=== PATIENT | female | born 1990 | race Hispanic/Latino ===

== ENCOUNTER 2016-09-05 10:18 | Emergency (ER) | payer SELFPAY ==
[2016-09-05 10:19] VITALS: BMI 20.9
--- NOTE | 2016-09-05 10:40 | ED PDOC ---
Arrival/HPI - General Time Seen by Provider: 09/05/16 10:28 Historian: Patient - History of Present Illness Narrative History of Present Illness (Text): 09/05/16 10:31 25 y/o female, pmh including tubal ovarian mass, penicillin allergy, LMP , c/o feeling nauseous and vomiting x 3 days. Pt. stated that her period has been late this week, no urinary symptoms, no flank pain, no fever or chills, no night sweat, no palpitation, no dizziness, no other medical or psychological complaints. Past Medical History - Provider Review Nursing Documentation Reviewed: Yes - Past Medical History Past Medical History: No Previous - Psychiatric Hx Substance Use: No - Past Surgical History Past Surgical History: No Previous - Surgical History Hx Section: Yes Other/Comment: 2 ABORTIONS - Anesthesia Hx Anesthesia: Yes Hx Anesthesia Reactions: No - Suicidal Assessment Feels Threatened In Home Enviroment: No Family/Social History - Physician Review Nursing Documentation Reviewed: Yes Family/Social History: Unknown Family HX Smoking Status: Heavy Smoker > 10 Cigarettes Daily Hx Alcohol Use: Yes Hx Substance Use: No Substance used: marijuana, cocaine Hx Substance Use Treatment: Yes (2 years ago for marijuana) Allergies/Home Meds Allergies/Adverse Reactions: Allergies Penicillins Allergy (Verified 09/05/16 10:45) RASH Review of Systems - Physician Review All systems were reviewed & negative as marked: Yes - Review of Systems Constitutional: absent: Weight Change, Fevers Eyes: absent: Vision Changes, Photophobia ENT: absent: Hearing Changes Respiratory: absent: Cough, Sputum Cardiovascular: absent: Chest Pain Gastrointestinal: Nausea, Vomiting. absent: Abdominal Pain, Constipation, Diarrhea Genitourinary Female: absent: Dysuria, Frequency, Hematuria, Urine Output Changes, Vaginal Bleeding, Vaginal Discharge Musculoskeletal: absent: Arthralgias, Back Pain, Neck Pain, Joint Swelling, Myalgias Skin: absent: Rash, Pruritis, Skin Lesions, Laceration, Abscess, Ulcer Neurological: absent: Headache, Dizziness Endocrine: absent: Diaphoresis Physical Exam Vital Signs Reviewed: Yes Vital Signs Temp Pulse Resp BP Pulse Ox 09/05/16 13:16 98.1 F 97 H 18 116/56 L 100 09/05/16 12:17 91 H 20 118/58 L 100 09/05/16 11:36 87 18 111/68 100 09/05/16 10:49 98.0 F 76 18 135/75 100 09/05/16 10:36 98.0 F 104 H 20 135/75 100 Temperature: Afebrile Blood Pressure: Normal Pulse: Regular Respiratory Rate: Normal Appearance: Positive for: Well-Appearing, Non-Toxic, Comfortable Pain Distress: None Mental Status: Positive for: Alert and Oriented X 3 - Systems Exam Head: Present: Atraumatic, Normocephalic Pupils: Present: PERRL Extroacular Muscles: Present: EOMI Conjunctiva: Present: Normal Ears: Present: Normal, NORMAL TM, Normal Canal. No: Erythema Mouth: Present: Moist Mucous Membranes Pharnyx: Present: Normal. No: ERYTHEMA, EXUDATE, Uvular Deviation, Soft Palate/ Uvular Edema Nose (External): Present: Atraumatic. No: Abrasion, Contusion, Laceration Nose (Internal): Present: Normal Inspection, No Active Bleeding. No: Rhinorrhea , Septal Hematoma, Epistaxis Neck: Present: Normal Range of Motion, Trachea Midline. No: Lymphadenopathy Respiratory/Chest: Present: Clear to Auscultation, Good Air Exchange. No: Respiratory Distress, Accessory Muscle Use Cardiovascular: Present: Regular Rate and Rhythm, Normal S1, S2. No: Murmurs Abdomen: Present: Normal Bowel Sounds. No: Tenderness, Distention, Peritoneal Signs, Rebound, Guarding Back: Present: Normal Inspection Upper Extremity: Present: Normal Inspection. No: Cyanosis, Edema Lower Extremity: Present: Normal Inspection. No: Edema Neurological: Present: GCS=15, Speech Normal, Motor Func Grossly Intact, Gait Normal, Memory Normal Skin: Present: Warm, Dry, Normal Color. No: Rashes Lymphatic: No: Cervical Adenopathy Psychiatric: Present: Alert, Oriented x 3, Normal Insight, Normal Concentration Medical Decision Making ED Course and Treatment: 09/05/16 10:43 -labs/ua -IVF -observe and reassess 09/05/16 12:59 -Labs are non-significant except mildly low potassium which I advised her eat more potassium rich food such as banana. -UA show no UTI -Influenza negative -Pt. has no vaginal bleeding or pelvic cramps, no ob or medical assistant ob gyn complaints. -elevated beta hcg 181,111 which is approx. 7-12 weeks . -Discharge home with jeyson, education on stay hydrated, saltine cracker, eat banana at home, follow up with your own pmd and obgyn within 2 days, return to the ER for any new or worsening signs or symptoms. - Lab Interpretations Lab Results: 09/05/16 10:45 09/05/16 10:45 Lab Results 09/05/16 10:45: WBC 8.8, RBC 4.29, Hgb 13.5, Hct 38.2, MCV 89.0, MCH 31.5, MCHC 35.3, RDW 13.0, Plt Count 248, MPV 9.9, Gran % 64.0, Lymph % (Auto) 26.4, Canyon % (Auto) 8.5 H, Eos % (Auto) 0.8 L, Baso % (Auto) 0.3, Gran # 5.62, Lymph # 2.3 , Canyon # 0.8 H, Eos # 0.1, Baso # 0.03, Sodium 138, Potassium 3.4 L, Chloride 102, Carbon Dioxide 21, Anion Gap 18, BUN 8, Creatinine 0.6, Est GFR ( Amer) > 60, Est GFR (Non-Af Amer) > 60, Random Glucose 88, Calcium 9.6, Total Bilirubin 1.3, AST 23, ALT 31, Alkaline Phosphatase 57, Total Protein 8.6 H, Albumin 4.8, Globulin 3.8, Albumin/Globulin Ratio 1.3 09/05/16 10:35: Urine Color Yellow, Urine Appearance Sl cloudy, Urine pH 5.5, Ur Specific Forbes >= 1.030, Urine Protein 30 H, Urine Glucose (UA) Negative, Urine Ketones Negative, Urine Blood Negative, Urine Nitrate Negative, Urine Bilirubin Small H, Urine Urobilinogen 1.0 H, Ur Leukocyte Esterase Negative, Urine RBC Negative, Urine WBC 0 - 2, Ur Epithelial Cells Many, Urine Bacteria Many, Urine HCG, Qual Positive, Influenza Typ A,B (EIA) Negative for flu a/b 09/05/16 10:30: Beta HCG, Quant 08413.00 H I have reviewed the lab results: Yes Interpretation: Abnormal lab values (elevated beta hcg 181,111) - Medication Orders Current Medication Orders: Discontinued Medications Sodium Chloride (Sodium Chloride 0.9%) 1,000 mls @ 999 mls/hr IV .Q1H1M STA Stop: 09/05/16 11:48 Last Admin: 09/05/16 11:00 Dose: 999 MLS/HR eMAR Start Stop Document 09/05/16 11:00 MMA (Rec: 09/05/16 11:21 MMA [facility] [id number]) Intravenous Solution Start Date 09/05/16 Start Time 11:21 End Date 09/05/16 End time 12:21 Total Infusion Time 60 - PA / CARPENTER SUPERVISOR / Resident Statement MD/DO has reviewed & agrees with the documentation as recorded. Disposition/Present on Arrival - Present on Arrival Any Indicators Present on Arrival: No History of DVT/PE: No History of Uncontrolled Diabetes: No Urinary Catheter: No History of Decub. Ulcer: No History Surgical Site Infection Following: None - Disposition Have Diagnosis and Disposition been Completed?: Yes Diagnosis: , Nausea/vomiting in Disposition: HOME/ ROUTINE Disposition Time: 10:44 Patient Plan: Discharge Condition: GOOD Additional Instructions: Discharge home with jeyson, education on stay hydrated, saltine cracker, eat banana at home, follow up with your own pmd and obgyn within 2 days, return to the ER for any new or worsening signs or symptoms. Prescriptions: Doxylamine/Pyridoxine HCl [Jeyson Rosa 10-10 mg Tablet] 1 tab PO DAILY PRN #14 tablet. PRN Reason: Other Referrals: PCP,NO [Primary Care Provider] - Follow up with primary Arminda Collado MD [Staff Provider] - Follow up with primary [facility] [place] [Outside] - Follow up with primary Forms: WORK NOTE
[2016-09-05] MEDS ORDERED: Sodium Chloride 0.9% 1,000 ML IV STA (10:48)
[2016-09-05 10:50] VITALS: O2SAT 100
[2016-09-05 10:52] LABS: ADD MANUAL DIFF? NO
[2016-09-05 10:54] LABS: BASO # 0.03 K/mm3 (0.0-2.0); BASO % 0.3 % (0.0-3.0); EOS # 0.1 (0.0-0.7); EOS % 0.8 % (1.5-5.0); GRAN # 5.62 (1.4-6.5); HEMATOCRIT 38.2 % (36.0-48.0); LYMPH # 2.3 (1.2-3.4); LYMPH % 26.4 % (22.0-35.0); MEAN CORPUSCULAR HEMOGLOBIN 31.5 pg (25.0-35.0); MEAN CORPUSCULAR HGB CONC 35.3 g/dl (31.0-37.0); MEAN PLATELET VOLUME 9.9 fl (7.0-11.0); MONO # 0.8 (0.1-0.6); MONO % 8.5 % (1.0-6.0); PLATELET COUNT 248 10^3/uL (120.0-450.0); WHITE BLOOD COUNT 8.8 10^3/ul (4.5-11.0)
[2016-09-05 11:07] LABS: ALB/GLOB RATIO 1.3 (1.1-1.8); ALKALINE PHOSPHATASE 57 U/L (38-133); ALT/SGPT 31 U/L (7-56); AST/SGOT 23 U/L (15-39); BILIRUBIN,TOTAL 1.3 mg/dL (0.2-1.3); BLOOD UREA NITROGEN 8 mg/dL (7-21); CALCIUM 9.6 mg/dL (8.4-10.5); CARBON DIOXIDE 21 mmol/L (21-33); CHLORIDE 102 mmol/L (98-107); GFR AFRICAN-AMERICAN > 60; GLUCOSE,RANDOM 88 mg/dL (70-110); POTASSIUM 3.4 mmol/L (3.6-5.0); SODIUM 138 mmol/L (132-148); TOTAL PROTEIN 8.6 g/dL (5.8-8.3)
[2016-09-05 11:30] LABS: PH,URINE 5.5 (4.7-8.0); URINE APPEARANCE SL CLOUDY (CLEAR); URINE BILIRUBIN SMALL (NEGATIVE); URINE BLOOD NEGATIVE (NEGATIVE); URINE COLOR YELLOW (YELLOW); URINE GLUCOSE (UA) NEGATIVE (NEGATIVE); URINE KETONE NEGATIVE (NEGATIVE); URINE LEUKOCYTE ESTERASE NEGATIVE Leu/uL (NEGATIVE); URINE PROTEIN 30 mg/dL (<30 mg/dL)
[2016-09-05 11:33] LABS: URINE BACTERIA MANY (NEG); URINE EPITHELIAL CELLS MANY /hpf (0-5); URINE RBC NEGATIVE /hpf (0-2); URINE WBC 0 - 2 /hpf (0-6)
[2016-09-05 13:16] VITALS: BP 116/56; PULSE 97; RESP 18; TEMP 98.1
== END 2016-09-05 13:43 | disposition home or self-care (01) ==
LOC: ED 10:18
DX: O21.0 Mild hyperemesis gravidarum (principal); Z3A.00 Weeks of gestation of pregnancy not specified
CPT/HCPCS: 80053; 81001; 84702; 84703; 85025; 87804; 96360; 99284; J7040